=== PATIENT | female | born 1985 | race Caucasian/White ===

== ENCOUNTER 2019-12-09 19:29 | Emergency (ER) | payer MEDICAID ==
[~2019-12-09] VITALS: Ht 160 cm; Wt 135.8 kg
[2019-12-09 19:35] VITALS: BP 158/76
[2019-12-09] MEDS ORDERED: ibuprofen tablet 400 MG TABLET PO ONE (20:50)
[2019-12-09] MEDS ORDERED: clindamycin 150mg capsule PO ONE (20:50)
[2019-12-09] MEDS ORDERED: acetaminophen 325mg tablet PO ONE (20:50)
[2019-12-09] MEDS ORDERED: IBUP-1985 PO (21:02)
[2019-12-09] MEDS ORDERED: CLIN150C2 PO (21:02)
== END 2019-12-09 21:10 | disposition home or self-care (01) ==
LOC: ER 19:30
DX: K04.7 Periapical abscess without sinus (principal); Z88.5 Allergy status to narcotic agent; Z88.0 Allergy status to penicillin; Z79.2 Long term (current) use of antibiotics; Z79.899 Other long term (current) drug therapy
CPT/HCPCS: 99284

== ENCOUNTER 2020-03-04 15:54 | Emergency (ER) | payer MEDICAID ==
[~2020-03-04] VITALS: Ht 160 cm; Wt 139.0 kg
[~2020-03-04 15:54] MED LIST: IBUP-1985 PO
[2020-03-04] MEDS ORDERED: ipratropium/albuterol 3ml nebule NEB ONE (18:55)
[2020-03-04] MEDS ORDERED: prednisone 10mg tablet PO SCH (18:55)
[2020-03-04] MEDS ORDERED: predniSONE 20 mg tablet PO ONE (19:05)
[2020-03-04 20:29] LABS: BASOPHILS # (AUTO) 0.1 X10'3 (0-0.2); BASOPHILS % (AUTO) 0.7 % (0-1); EOSINOPHILS # (AUTO) 0.3 X10'3 (0-0.9); EOSINOPHILS % (AUTO) 3.7 % (0-6); HEMATOCRIT 46.5 % (35.0-45.0); HEMOGLOBIN 15.6 g/dl (12.0-16.0); LYMPHOCYTES # (AUTO) 3.2 X10'3 (1.1-4.8); LYMPHOCYTES % (AUTO) 34.3 % (21-51); MEAN CORPUSCULAR HEMOGLOBIN 31.4 PG (27.0-31.0); MEAN CORPUSCULAR HGB CONC 33.6 g/dL (33.0-36.5); MEAN CORPUSCULAR VOLUME 93.6 FL (78-98); MEAN PLATELET VOLUME 7.2 FL (7.4-10.4); MONOCYTES # (AUTO) 0.6 X10'3 (0-0.9); MONOCYTES % (AUTO) 6.7 % (2-12); NEUTROPHILS # (AUTO) 5.1 X10'3 (1.8-7.7); NEUTROPHILS % (AUTO) 54.6 % (42-75); PLATELET COUNT 250 X10'3 (140-440); RED BLOOD COUNT 4.97 X10'6 (4.20-5.60); RED CELL DISTRIBUTION WIDTH 14.3 % (11.5-14.5); WHITE BLOOD COUNT 9.4 X10'3 (4.5-11.0)
[2020-03-04 20:43] LABS: ALBUMIN 3.4 G/DL (3.4-5.0); ANION GAP 9 (8-16); BLOOD UREA NITROGEN 8 MG/DL (7-18); BUN/CREATININE RATIO 12.7 (6.6-38.0); CALCIUM 9.3 MG/DL (8.5-10.1); CHLORIDE 104 MMOL/L (99-107); CREATININE 0.63 MG/DL (0.40-0.90); GLUCOSE 103 MG/DL (70-104); POTASSIUM 4.1 MMOL/L (3.5-5.1); SODIUM 139 MMOL/L (135-145); TOTAL CARBON DIOXIDE 26.1 MMOL/L (24-32); TROPONIN I < 0.04 NG/ML (0.0-0.05); eGFR > 90 ML/MIN
[2020-03-04] MEDS ORDERED: PRED20TA PO (20:57)
[2020-03-04] MEDS ORDERED: ALBU8HFA PO (20:57)
[2020-03-04 21:09] VITALS: BP 138/83
== END 2020-03-04 21:11 | disposition home or self-care (01) ==
LOC: ER 15:54
DX: J45.901 Unspecified asthma with (acute) exacerbation (principal); R07.89 Other chest pain; R06.02 Shortness of breath; Z88.5 Allergy status to narcotic agent; Z88.0 Allergy status to penicillin; Z79.899 Other long term (current) drug therapy
CPT/HCPCS: 36415; 80048; 84484; 85025; 93005; 94640; 99285; J7512; 94760

== ENCOUNTER 2020-07-23 11:07 | Emergency (ER) | payer MEDICAID ==
[~2020-07-23] VITALS: Ht 160 cm; Wt 127.2 kg
[2020-07-23] MEDS ORDERED: HYDR-3965 PO (11:35)
[2020-07-23] MEDS ORDERED: CEPH-585 PO (11:35)
[2020-07-23] MEDS ORDERED: SULF1TAB49 PO (11:35)
[2020-07-23 11:53] VITALS: BP 124/88
== END 2020-07-23 12:00 | disposition home or self-care (01) ==
LOC: ER 11:08
DX: L03.115 Cellulitis of right lower limb (principal); R53.83 Other fatigue; Z88.0 Allergy status to penicillin; Z88.5 Allergy status to narcotic agent; Z79.2 Long term (current) use of antibiotics; Z79.899 Other long term (current) drug therapy
CPT/HCPCS: 99283

== ENCOUNTER 2020-08-08 16:09 | Emergency (ER) | payer MEDICAID ==
[~2020-08-08] VITALS: Ht 160 cm; Wt 130.4 kg
[~2020-08-08 16:09] MED LIST changes: +CEPH-585 PO; +HYDR-3965 PO
[2020-08-08 16:35] VITALS: BP 133/90
== END 2020-08-08 21:19 | disposition left against medical advice (07) ==
LOC: ER 16:10
DX: J45.909 Unspecified asthma, uncomplicated (principal); Z53.21 Procedure and treatment not carried out due to patient leaving prior to being seen by health care provider

== ENCOUNTER 2020-09-15 15:32 | Emergency (ER) | payer MEDICAID ==
[~2020-09-15] VITALS: Ht 162.6 cm; Wt 130.9 kg
[~2020-09-15 15:32] MED LIST changes: -HYDR-3965 PO
[2020-09-15] MEDS ORDERED: GABA300C PO (17:43)
[2020-09-15] MEDS ORDERED: CYCL-1 PO (17:43)
[2020-09-15] MEDS ORDERED: orphenadrine citrate 60mg/2ml inj. IM ONE (17:45)
[2020-09-15] MEDS ORDERED: ketorolac trometh inj. 60 MG/2 ML VIAL IM ONE (17:45)
[2020-09-15] MEDS ORDERED: DIAZ5TAB22 PO (18:29)
[2020-09-15 18:37] VITALS: BP 136/73
== END 2020-09-15 18:32 | disposition home or self-care (01) ==
LOC: ER 15:34
DX: M54.42 Lumbago with sciatica, left side (principal); Z88.5 Allergy status to narcotic agent; Z88.0 Allergy status to penicillin; Z79.899 Other long term (current) drug therapy
CPT/HCPCS: 72100; 96372; 99284; J1885; J2360

== ENCOUNTER 2021-01-01 03:17 | Emergency (ER) | payer MEDICAID ==
[~2021-01-01] VITALS: Ht 160 cm; Wt 127.3 kg
[~2021-01-01 03:17] MED LIST changes: +GABA300C PO
[2021-01-01 03:27] VITALS: BP 137/93
[2021-01-01] MEDS ORDERED: CLIN-97 PO (04:30)
[2021-01-01] MEDS ORDERED: HYDR-3965 PO (04:31)
== END 2021-01-01 04:39 | disposition home or self-care (01) ==
LOC: ER 03:17
DX: L03.031 Cellulitis of right toe (principal); M79.674 Pain in right toe(s); Z98.891 History of uterine scar from previous surgery; Z86.19 Personal history of other infectious and parasitic diseases; Z88.0 Allergy status to penicillin; Z88.8 Allergy status to other drugs, medicaments and biological substances; Z79.2 Long term (current) use of antibiotics; Z79.899 Other long term (current) drug therapy
CPT/HCPCS: 99283

== ENCOUNTER 2022-10-03 16:57 | Emergency (ER) | payer MEDICAID ==
[~2022-10-03] VITALS: Ht 160 cm; Wt 100.0 kg
[~2022-10-03 16:57] MED LIST changes: -CEPH-585 PO; +CLIN-97 PO
[2022-10-03 17:15] VITALS: BP 122/88
[2022-10-03] MEDS ORDERED: CLIN300C70 PO (18:40)
[2022-10-03] MEDS ORDERED: ALBU8HFA PO (18:43)
== END 2022-10-03 18:44 | disposition home or self-care (01) ==
LOC: ER 16:58
DX: S09.22XA Traumatic rupture of left ear drum, initial encounter (principal); H66.92 Otitis media, unspecified, left ear; X58.XXXA Exposure to other specified factors, initial encounter; Y93.89 Activity, other specified; Y92.89 Other specified places as the place of occurrence of the external cause; Y99.8 Other external cause status; Z88.5 Allergy status to narcotic agent; Z88.0 Allergy status to penicillin; Z79.899 Other long term (current) drug therapy; Z88.1 Allergy status to other antibiotic agents
CPT/HCPCS: 99283

== ENCOUNTER 2023-04-26 21:47 | Emergency (ER) | payer MEDICAID ==
[~2023-04-26] VITALS: Ht 160 cm; Wt 117.8 kg
[2023-04-26 22:10] LABS: BASOPHILS # (AUTO) 0.1 X10'3 (0-0.2); BASOPHILS % (AUTO) 1.4 % (0-1); EOSINOPHILS # (AUTO) 0.4 X10'3 (0-0.9); EOSINOPHILS % (AUTO) 3.8 % (0-6); HEMATOCRIT 43.1 % (35.0-45.0); HEMOGLOBIN 14.7 g/dl (12.0-16.0); LYMPHOCYTES # (AUTO) 5.2 X10'3 (1.1-4.8); LYMPHOCYTES % (AUTO) 51.5 % (21-51); MEAN CORPUSCULAR HEMOGLOBIN 31.6 PG (27.0-31.0); MEAN CORPUSCULAR HGB CONC 34.2 g/dL (33.0-36.5); MEAN CORPUSCULAR VOLUME 92.5 FL (78-98); MEAN PLATELET VOLUME 7.1 FL (7.4-10.4); MONOCYTES # (AUTO) 0.7 X10'3 (0-0.9); MONOCYTES % (AUTO) 7.3 % (2-12); NEUTROPHILS # (AUTO) 3.7 X10'3 (1.8-7.7); PLATELET COUNT 258 X10'3 (140-440); RED BLOOD COUNT 4.66 X10'6 (4.20-5.60); RED CELL DISTRIBUTION WIDTH 13.7 % (11.5-14.5); WHITE BLOOD COUNT 10.1 X10'3 (4.5-11.0)
[2023-04-26 22:21] LABS: ALANINE AMINOTRANSFERASE 83 U/L (12-78); ALBUMIN 3.4 G/DL (3.4-5.0); ALBUMIN/GLOBULIN RATIO 0.8 (1.1-1.5); ALKALINE PHOSPHATASE 69 IU/L (46-116); ANION GAP 6 (8-16); ASPARTATE AMINO TRANSFERASE 38 U/L (10-37); BILIRUBIN,TOTAL 0.2 MG/DL (0.1-1.0); BLOOD UREA NITROGEN 10 MG/DL (7-18); BUN/CREATININE RATIO 13.2 (10.0-20.0); CALCIUM 8.8 MG/DL (8.5-10.1); CHLORIDE 105 MMOL/L (99-107); CREATININE 0.76 MG/DL (0.40-0.90); GLUCOSE 86 MG/DL (70-104); POTASSIUM 3.7 MMOL/L (3.5-5.1); SODIUM 139 MMOL/L (135-145); TOTAL CARBON DIOXIDE 28.3 MMOL/L (24-32); TOTAL PROTEIN 7.5 G/DL (6.4-8.2); eCRCL 83 ML/MIN; eGFR 85 ML/MIN
[2023-04-26 22:28] LABS: PRO BRAIN NATRIURETIC PEPTIDE < 30 PG/ML (0-125)
[2023-04-27] MEDS ORDERED: PRED20TA PO (00:10)
[2023-04-27] MEDS ORDERED: acetaminophen 325mg tablet PO ONE (00:10)
[2023-04-27] MEDS ORDERED: ACET-1025 PO (00:10)
[2023-04-27] MEDS ORDERED: dexamethasone 4mg tablet PO ONE (00:10)
[2023-04-27] MEDS ORDERED: ketorolac trometh inj. 60 MG/2 ML VIAL IM ONE (00:10)
[2023-04-27] MEDS ORDERED: IBUP-1984 PO (00:10)
[2023-04-27 00:30] VITALS: BP 155/80; PULSE 85; RESP 17; TEMP 97.9; O2SAT 98
== END 2023-04-27 00:31 | disposition home or self-care (01) ==
LOC: ER 21:48
DX: J45.901 Unspecified asthma with (acute) exacerbation (principal); M25.511 Pain in right shoulder; F17.200 Nicotine dependence, unspecified, uncomplicated; Z88.0 Allergy status to penicillin; Z88.8 Allergy status to other drugs, medicaments and biological substances; Z91.041 Radiographic dye allergy status; Z79.2 Long term (current) use of antibiotics; Z79.899 Other long term (current) drug therapy
CPT/HCPCS: 36415; 71045; 80053; 83880; 84484; 85025; 93005; 96372; 99285; J1885